=== PATIENT | male | born 2000 | race Two or more races ===

== ENCOUNTER 2021-03-28 11:53 | Emergency (ER) | payer OTHER | END 2021-03-28 13:28 | disposition home or self-care (01) | LOC: FER 11:53 | DX: S60.012A Contusion of left thumb without damage to nail, initial encounter (principal); F17.210 Nicotine dependence, cigarettes, uncomplicated; W22.8XXA Striking against or struck by other objects, initial encounter; Y92.009 Unspecified place in unspecified non-institutional (private) residence as the place of occurrence of the external cause | CPT/HCPCS: 73130 ==